=== PATIENT | male | born 1975 | race Caucasian/White ===

== ENCOUNTER 2020-09-22 14:03 | Inpatient (IN) | payer MEDICAID ==
[~2020-09-22] VITALS: Ht 170.2 cm; Wt 79.5 kg
[~2020-09-22 14:03] MED LIST: NALT50TA PO; QUET200T5 PO; QUET25TA34 PO
[2020-09-22] MEDS ORDERED: LORazepam 2 MG/ML VIAL IM ONE ×2 (14:30→20:45)
[2020-09-22] MEDS ORDERED: DiphenhydrAMINE HCL 50 MG/ML VIAL IM ONE ×2 (14:30→20:45)
[2020-09-22] MEDS ORDERED: HALOPERIDOL LACTATE 5 MG/ML VIAL IM ONE ×2 (14:30→20:45)
[2020-09-22 15:44] LABS: BASOPHILS % (AUTO) 0.5 % (0.0-2.0); EOSINOPHILS % (AUTO) 0 % (1.0-6.0); HEMATOCRIT 47.1 % (41-53); LYMPHOCYTES # (AUTO) 1.6 K/uL (1.0-4.8); LYMPHOCYTES % (AUTO) 10.1 % (22.0-44.0); MEAN CORPUSCULAR HEMOGLOBIN 30.4 pg (26.0-34.0); MEAN CORPUSCULAR VOLUME 89 fL (80-100); MONOCYTES # (AUTO) 1.1 K/uL (0.1-1.0); MONOCYTES % (AUTO) 7.5 % (2.0-9.0); NEUTROPHILS # (AUTO) 12.5 K/uL (1.8-7.7); NEUTROPHILS % (AUTO) 81.9 % (40.0-70.0); PLATELET COUNT (AUTO) 276 K/uL (150-450); RED BLOOD CELL COUNT(AUTO) 5.27 MIL/uL (4.50-5.90); RED CELL DISTRIBUTION WIDTH 12.9 % (11.5-14.5)
[2020-09-22 15:52] LABS: ANION GAP 16 mmol/L (8-16); CARBON DIOXIDE 20 mmol/L (22-29); CHLORIDE 104 mmol/L (98-107); CREATININE 1.21 mg/dL (0.60-1.30); GLOMERULAR FILTR. RATE CALC > 60 mL/min (>60); GLUCOSE,RANDOM 108 mg/dL (70-110); POTASSIUM 3.6 mmol/L (3.5-5.1); SODIUM SERUM 140 mmol/L (136-145); UREA NITROGEN, BLOOD 21 mg/dL (7-18)
[2020-09-22 15:59] LABS: ALANINE AMINOTRANSFERASE 43 U/L (12-78); ALBUMIN 4.4 g/dL (3.4-5.0); ALKALINE PHOSPHATASE 80 U/L (46-116); ASPARTATE AMINOTRANSFERASE 54 U/L (15-37); BILIRUBIN,TOTAL 1.1 mg/dL (0.1-1.0); TOTAL PROTEIN, SERUM 8.1 g/dL (6.4-8.2)
[2020-09-22 16:06] LABS: COVID AG,FIA SOURCE NASOPHARYNGEAL
[2020-09-22] MEDS ORDERED: ZOLPIDEM TARTRATE 10 MG TABLET PO PRN (19:30)
[2020-09-22] MEDS ORDERED: PROMETHAZINE HCL 25 MG TABLET PO PRN (19:30)
[2020-09-22] MEDS ORDERED: QUEtiapine FUMARATE 100 MG TABLET PO PRN (19:30)
[2020-09-22] MEDS ORDERED: LORazepam 2 MG TABLET PO PRN (19:30)
[2020-09-22] MEDS ORDERED: HydrOXYzine PAMOATE 50 MG CAPSULE PO PRN (19:30)
[2020-09-22] MEDS ORDERED: GuaiFENesin/D-METHORPHAN [SUGAR-FREE] 200-20MG/10 ML SYRUP UDCUP PO PRN (19:30)
[2020-09-22] MEDS: THIAMINE 100 MG TABLET PO SCH (20:40)
[2020-09-22] MEDS ORDERED: LORazepam 2 MG/ML VIAL ONE (20:40)
[2020-09-22] MEDS ORDERED: DiphenhydrAMINE HCL 50 MG/ML VIAL ONE (20:41)
[2020-09-22] MEDS ORDERED: HALOPERIDOL LACTATE 5 MG/ML VIAL ONE (20:41)
[2020-09-22] MEDS ORDERED: QUEtiapine FUMARATE 200 MG TABLET PO SCH (21:00)
[2020-09-22] MEDS: MELATONIN 5 MG TABLET PO SCH (21:00)
[2020-09-22 21:25] VITALS: BP 129/62
[2020-09-23 05:07] VITALS: BP 133/83
[2020-09-23 08:02] VITALS: BP 131/80
[2020-09-23 08:20] LABS: HEMOGLOBIN A1C 5.6 % (3.8-5.6)
[2020-09-23 08:58] LABS: CHOL/HDL RATIO 2.7 (4.2-7.3); FREE T4 (FREE THYROXINE) 1.47 ng/dL (0.76-1.46); THYROID STIMULATING HORMONE 1.89 uIU/mL (0.36-3.74)
[2020-09-23] MEDS: FOLIC ACID 1 MG TABLET PO SCH (09:10)
[2020-09-23] MEDS: NALTREXONE HCL 50 MG TABLET PO SCH (09:10)
[2020-09-23] MEDS: THIAMINE 100 MG TABLET PO SCH ×2 (09:10→17:07)
[2020-09-23] MEDS: OMEGA-3/DHA/EPA/FISH OIL 1,000 MG CAPSULE PO SCH (09:10)
[2020-09-23] MEDS: MULTIVITAMINS WITH MINERALS, THERAPEUTIC TABLET PO SCH (09:10)
[2020-09-23 16:05] VITALS: BP 124/80
[2020-09-23] MEDS: MELATONIN 5 MG TABLET PO SCH (20:33)
[2020-09-23] MEDS ORDERED: QUEtiapine FUMARATE 25 MG TABLET PO SCH (21:00)
[2020-09-24 05:38] VITALS: BP 142/87
[2020-09-24] MEDS ORDERED: LURASIDONE HCL 40 MG TABLET PO SCH (07:00)
[2020-09-24 08:02] VITALS: BP 124/68
[2020-09-24] MEDS: OMEGA-3/DHA/EPA/FISH OIL 1,000 MG CAPSULE PO SCH (08:52)
[2020-09-24] MEDS: MULTIVITAMINS WITH MINERALS, THERAPEUTIC TABLET PO SCH (08:52)
[2020-09-24] MEDS: NALTREXONE HCL 50 MG TABLET PO SCH (08:53)
[2020-09-24] MEDS: FOLIC ACID 1 MG TABLET PO SCH (08:53)
[2020-09-24] MEDS: THIAMINE 100 MG TABLET PO SCH ×2 (08:53→16:28)
[2020-09-24] MEDS ORDERED: NALT50TA PO (14:37)
[2020-09-24] MEDS ORDERED: MELA5TAB3 PO (14:37)
[2020-09-24] MEDS ORDERED: QUET25TA34 PO (14:37)
[2020-09-24] MEDS ORDERED: OMEG-135 PO (14:37)
[2020-09-24 16:04] VITALS: BP 130/79
[2020-09-24] MEDS: MELATONIN 5 MG TABLET PO SCH (20:13)
[2020-09-24] MEDS ORDERED: QUEtiapine FUMARATE 100 MG TABLET PO SCH (21:00)
[2020-09-25 06:12] VITALS: BP 134/76
[2020-09-25] MEDS: MULTIVITAMINS WITH MINERALS, THERAPEUTIC TABLET PO SCH (08:33)
[2020-09-25] MEDS: THIAMINE 100 MG TABLET PO SCH (08:33)
[2020-09-25] MEDS: FOLIC ACID 1 MG TABLET PO SCH (08:33)
[2020-09-25] MEDS: OMEGA-3/DHA/EPA/FISH OIL 1,000 MG CAPSULE PO SCH (08:33)
[2020-09-25] MEDS: NALTREXONE HCL 50 MG TABLET PO SCH (08:34)
[2020-09-25 08:53] VITALS: BP 130/78
== END 2020-09-25 15:30 | disposition home or self-care (01) | DRG 750 ==
LOC: EMS 14:03 → B3A 15:05
PROVIDERS: ADMIT Psychiatry & Neurology Psychiatry; ATTEND Psychiatry & Neurology Psychiatry
DX: F20.9 Schizophrenia, unspecified (principal); F43.10 Post-traumatic stress disorder, unspecified; Z20.822 Contact with and (suspected) exposure to COVID-19; Z55.9 Problems related to education and literacy, unspecified; Z59.9 Problem related to housing and economic circumstances, unspecified; Z65.3 Problems related to other legal circumstances; F12.90 Cannabis use, unspecified, uncomplicated; Z87.891 Personal history of nicotine dependence
CPT/HCPCS: 83036; 84439; 84443; 86592; 87426; 99291; A9575; G0480; J1200; J1630; J2060